=== PATIENT | male | born 1975 | race Caucasian/White ===

== ENCOUNTER 2021-06-08 09:34 | Emergency (ER) | payer BC, SELFPAY ==
--- NOTE | ~2021-06-08 | XR_ITS ---
EXAMINATION: XR knee RT min 4V EXAM DATE: 06/08/2021 10:18 INDICATION: right knee pain, felt a pop. TECHNIQUE: Right knee frontal, crosstable lateral, orthogonal oblique projections for interpretation . There is no prior study for comparison. FINDINGS: No evidence osteochondral defect or joint body in the right knee joint. No sizable joint effusion. There are no acute fractures or dislocations identified. There is no subcutaneous gas. T he soft tissue is unremarkable. There are no radiopaque foreign bodies. There is mild patellofemor al primary osteoarthritis. Mild patellar enthesopathy. IMPRESSION: 1. XR knee RT min 4V exam without acute osseous findings. 2. Mild degenerative changes. Reviewed, dictated and finalized at location A. [facility]
[2021-06-08 09:42] VITALS: BP 170/96; PULSE 88; RESP 21; TEMP 37.1; O2SAT 99
--- NOTE | 2021-06-08 10:21 | ED.LOWEXIN ---
HPI - Extremity Injury (Lower) General Chief Complaint: Extremity Injury, Lower Stated Complaint: pop in right knee Time Seen by Provider: 06/08/21 09:49 Source: patient Mode of arrival: wheelchair Limitations: no limitations History of Present Illness HPI Narrative: This is a 46 year old male that presents to the ER for right knee pain today. Reports he was stepping down off a curb this morning and felt a pop in the right knee. Reports since he has had pain in the knee especially with weightbearing. Denies decreased range of motion or numbness. Related Data Home Medications Medication Instructions Recorded Confirmed multivitamin 1 tablet PO DAILY 01/22/21 01/22/21 Allergies Allergy/AdvReac Type Severity Reaction Status Date / Time latex Allergy Unknown Rash Verified 06/08/21 09:54 Review of Systems Review of Systems: CONSTITUTIONAL: Denies fever SKIN: Denies rash MUSCULOSKELETAL: Reports joint pain, and myalgia. NEUROLOGIC: Denies numbness All systems reviewed & are unremarkable except as noted in HPI and below PMFSH Past Medical History Medical History (Updated 06/08/21 @ 10:49 by Ana Sandoval PA-C) BMI greater than 40 Essential (primary) hypertension History of kidney stones Umbilical hernia Surgical History Surgical History (Updated 01/22/21 @ 09:39 by Blanca Bourne) History of right inguinal hernia repair Performed by Dr. Pramod Cintron Family History Family History Mother Hypertension Sibling Hypertension Family history of attention deficit hyperactivity disorder (ADHD) Other Diabetes mellitus Family history of lung cancer Social History Social History Smoking status: Never smoker Alcohol intake: never Exam Narrative: GENERAL: Well-appearing, well-nourished, and in no acute distress. HEAD: Normocephalic, atraumatic. EYES: EOMI. EXTREMITIES: Normal range of motion. No edema or obvious deformity. Normal DP pulses. Normal sensation SKIN: Warm, dry, no rash. NEURO: No focal deficits. Alert and oriented x3. PSYCH: Normal mood and affect Course Vital Signs Vital signs: Vital Signs Temperature 98.7 F 06/08/21 09:42 Pulse Rate 88 06/08/21 09:42 Respiratory Rate 21 H 06/08/21 09:42 Blood Pressure 170/96 H 06/08/21 09:42 Pulse Oximetry 99 06/08/21 09:42 Temperature 98.7 F 06/08/21 09:42 Pulse Rate 76 06/08/21 10:44 Respiratory Rate 18 06/08/21 10:44 Blood Pressure 134/84 06/08/21 10:44 Pulse Oximetry 100 06/08/21 10:44 MDM - Extremity Injury (Lower) MDM Narrative Medical decision making narrative: Patient presents to the emergency department for right knee pain after an injury today. He is neurovascularly intact. Right knee x-rays without acute osseous abnormalities. Patient placed in a knee immobilizer and given crutches for knee sprain. He was instructed to follow-up with orthopedics. He was given warnings to return to the ER Patient's blood pressure also incidentally noted to be elevated upon arrival. He does have history of hypertension and had not taken his medication yet today. He was given this in the ED. Most recent blood pressure 134/84 Imaging Data Radiologist's impression: ITS Impressions Knee X-Ray 06/08/21 10:20 IMPRESSION: 1. XR knee RT min 4V exam without acute osseous findings. 2. Mild degenerative changes. Critical Care Time Critical Care Time Critical Care Time: No Discharge Plan Discharge Clinical Impression: Right knee sprain Qualifiers: Encounter type: initial encounter Involved ligament of knee: unspecified ligament Qualified Code(s): S83.91XA - Sprain of unspecified site of right knee, initial encounter Patient Disposition: Home, Self-Care Condition: Stable Instructions: Knee Sprain (ED) Additional Instructions: Return to the emergency department i
[2021-06-08 10:44] VITALS: BP 134/84; PULSE 76; RESP 18; O2SAT 100
[2021-06-08] MEDS: ACETAMINOPHEN 500 MG TABLET 1000 MG PO (10:45)
[2021-06-08] MEDS: KETOROLAC (*BKC) 60 MG/2 ML VIAL IM (10:46)
== END 2021-06-08 11:32 | disposition home or self-care (01) ==
PROVIDERS: Emergency Provider Emergency Medicine; PCP Family Medicine
DX: S83.91XA Sprain of unspecified site of right knee, initial encounter (principal); I10 Essential (primary) hypertension; Z87.442 Personal history of urinary calculi; X50.9XXA Other and unspecified overexertion or strenuous movements or postures, initial encounter
CPT/HCPCS: 73564; 96372; 99283; A9270; J1885

== ENCOUNTER 2021-08-22 07:37 | Outpatient (CLI) | payer BC, SELFPAY ==
--- NOTE | ~2021-08-22 | MR_ITS ---
EXAMINATION: MR knee RT wo con DATE: 08/22/2021 08:25 INDICATION: Right knee pain TECHNIQUE: Magnetic resonance imaging (MRI) of the right knee was performed without intravenous contr ast. Sequences included coronal PD-weighted FSE, coronal PD-weighted FS FSE, sagittal T2-weighted FS E, sagittal PD-weighted FS FSE and axial PD weighted fat saturated FSE. COMPARISON: None. FINDINGS: Medial compartment: Small radial tear near the posterior root of the medial meniscus. 10 x 7 mm deep chondral ulceration at the junction of the anterior and central weightbearing medial femoral condyle. More subtle deep ch ondral fissure with at the central weightbearing medial femoral condyle. Cartilage along the medial t ibial plateau appears normal however there is a small focus of subarticular edema-like signal change along the medial rim which may be reactive related to altered stress distribution resulting from the meniscal tear. Lateral compartment: Lateral meniscus is normal. Articular cartilage is normal. Patellofemoral compartment: Chondral ulceration and fissuring along the medial and lateral trochlea as well as the intervening tr ochlear groove with underlying cortical irregularity and a few small foci of edema-like marrow signal change. Apical ridge partial-thickness chondral fissuring involving less than 50% the cartilage thic kness at the medial lateral patellar facets and intervening apical ridge. Ligaments and tendons: Anterior and posterior cruciate ligaments are normal. Mild thickening of the proximal medial collater al without surrounding edema consistent with mild scarring related to chronic sprain. The fibular col lateral ligament complex is normal. Patellar insertions of the small proximal and distal patellar ent hesophytes with mild tendinopathy at the distal quadriceps tendon. The patellar tendon is normal. The visualized medial and lateral hamstring tendons as well as the iliotibial band are normal. Fluid: Small knee joint effusion with mild synovitis at the suprapatellar pouch. No loose osteochondral bodi es identified. Osseous/other: No fracture. A small sclerotic bone islands at the posterior aspect of the lateral femoral condyle. P eripherally based lesion at the posterior medial metaphysis of the distal femur with incomplete perip heral low signal intensity sclerotic rim with internal marrow fat signal likely representing residual scarring from a chronic fibrous cortical defect. IMPRESSION: 1. Radial tear near the posterior root of the medial meniscus. 2. Mild osteoarthritis in the patellofemoral compartment with extensive high-grade trochlear and mode rate grade patellar chondromalacia as well as in the medial compartment with small amount of moderate to high-grade chondral malacia along the weightbearing medial femoral condyle. 3. Small focus of marrow edema along the medial rim of the medial tibial plateau without appreciable overlying chondromalacia this may represent stress reaction related to altered stress distribution re sulting from the meniscal tear. 4. Small right knee joint effusion. Reviewed, dictated and finalized at location A. IMPRESSION: 1. Radial tear near the posterior root of the medial meniscus. 2. Mild osteoarthritis in the patellofemoral compartment with extensive high-gr isidro trochlear and moderate grade patellar chondromalacia as well as in the medi al compartment with small amount of moderate to high-grade chondral malacia perla ng the weightbearing medial femoral condyle. 3. Small focus of marrow edema along the medial rim of the medial tibial platea u without appreciable overlying chondromalacia this may represent stress reacti on related to altered stress distribution resulting from the meniscal tear. 4
== END 2021-08-22 07:38 | disposition home or self-care (01) ==
LOC: ANHIMG 07:39
PROVIDERS: PCP Family Medicine; Visit Provider Nurse Practitioner Adult Health
DX: S83.241A Other tear of medial meniscus, current injury, right knee, initial encounter (principal); M17.11 Unilateral primary osteoarthritis, right knee; M94.261 Chondromalacia, right knee; M25.461 Effusion, right knee
CPT/HCPCS: 73721

== ENCOUNTER 2021-12-09 14:54 | Emergency (ER) | payer BC, SELFPAY ==
--- NOTE | 2021-12-09 15:01 | ED.LOWEXIN ---
HPI - Extremity Injury (Lower) General Chief Complaint: Extremity Problem,Nontraumatic Stated Complaint: rt great toe pain and swelling Time Seen by Provider: 12/09/21 15:10 Source: patient and RN notes reviewed Mode of arrival: ambulatory Limitations: no limitations History of Present Illness HPI Narrative: 38-year-old male presents with concern for painful, red, swollen first digit of the right foot. 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 Reports his toe was healing well and looks good at his 2-week follow-up. Reports about a week and a half later he began having redness, pain, swelling. He reports 1 incident of clear drainage, denies other purulent drainage. Related Data Home Medications Medication Instructions Recorded Confirmed multivitamin 1 tablet PO DAILY 01/22/21 12/09/21 meloxicam 15 mg tablet 1 tablet PO DAILY 12/09/21 12/09/21 Allergies Allergy/AdvReac Type Severity Reaction Status Date / Time latex Allergy Unknown Rash Verified 12/09/21 14:58 Review of Systems Review of Systems: CONSTITUTIONAL: Denies malaise, chills, sweats, or fever. SKIN: Reports redness, swelling, tenderness at the base of the nail of the first digit of the right foot MUSCULOSKELETAL: Denies joint pain or myalgia. NEUROLOGIC: Denies headache. All systems reviewed & are unremarkable except as noted in HPI and below PMFSH Past Medical History Medical History BMI greater than 40 Essential (primary) hypertension History of kidney stones Umbilical hernia Surgical History Surgical History History of right inguinal hernia repair Performed by Dr. Pramod Cintron Family History Family History Mother Hypertension Sibling Hypertension Family history of attention deficit hyperactivity disorder (ADHD) Father No problems noted. 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 There is no relevant family history pertinent to the presenting complaint Exam Narrative: GENERAL: Well-appearing, well-nourished, and in no acute distress. HEAD: Normocephalic, atraumatic. EYES: PERRLA, conjunctivae clear ENT: Mucous membranes moist. NECK: Supple. No lymphadenopathy CHEST: Clear to auscultation. No respiratory distress. HEART: Regular rate and rhythm. SKIN: Warm, dry. Erythema, induration, tenderness noted to the base of the nailbed of the first digit of the right foot, no fluctuation noted, no drainage noted NEURO: Alert and oriented x3. PSYCH: Normal mood and affect Course Course Emergency Course: Patient is aware of diagnosis, understands and agrees to treatment plan. Anticipatory guidance given. Patient agrees to follow-up as directed and is aware of reasons to seek care at the emergency department. Portions of this record may have been created with voice recognition software Level of Care: Express Care Visit Vital Signs Vital signs: Reviewed. MDM - Extremity Injury (Lower) MDM Narrative Medical decision making narrative: Exam findings show no acute concerns or changes; patient is non-toxic appearing and is in no distress. Patient is appropriate for outpatient treatment and follow-up. Critical Care Time Critical Care Time Critical Care Time: No Discharge Plan Discharge Clinical Impression: Paronychia Patient Disposition: Home, Self-Care Condition:
[2021-12-09 15:10] VITALS: BP 150/96; PULSE 78; RESP 18; TEMP 36.5; O2SAT 98
== END 2021-12-09 15:22 | disposition home or self-care (01) ==
PROVIDERS: Emergency Provider Nurse Practitioner; PCP Family Medicine
DX: L03.031 Cellulitis of right toe (principal); I10 Essential (primary) hypertension
CPT/HCPCS: 99213; G0463

== ENCOUNTER 2022-11-08 00:29 | Emergency (ER) | payer BC, SELFPAY ==
--- NOTE | ~2022-11-08 | CT_ITS ---
EXAMINATION: CT abdomen pelvis w con INDICATION: Right-sided abdominal pain TECHNIQUE: Computed tomographic images of the abdomen and pelvis were obtained after the administrati on of 100 cc of Omnipaque 350 intravenous contrast. The dose-length product (DLP) was 1562.00 mGy-cm. Automated exposure control and iterative reconstruction technique were employed. COMPARISON: 10/19/2011 FINDINGS: Minimal dependent atelectasis is present in the lung bases. The heart size is normal. The l iver is diffusely low in attenuation when compared with the spleen, consistent with hepatic steatosis . There are areas of focal sparing at the gallbladder fossa. The spleen, pancreas, gallbladder, and a drenal glands are normal. There is circumferential wall thickening of the proximal duodenum with samantha cent fat stranding. There is a 7 mm cyst of the right kidney. Nonobstructing stones of the right kidn ey measure up to 3 mm. Nonobstructing stones of the left kidney measure up to 3 mm. No pathologically enlarged abdominal or pelvic lymph nodes are identified. The appendix is normal. No free intraperito thelma gas or evidence of bowel obstruction. There is a moderate-sized umbilical hernia containing fat. There is a small left inguinal hernia containing fat. IMPRESSION: 1. Wall thickening and surrounding inflammatory change of the proximal duodenum which may reflect duo denitis or possibly duodenal ulcer. Reviewed, dictated and finalized at location A. IMPRESSION: 1. Wall thickening and surrounding inflammatory change of the proximal duodenum which may reflect duodenitis or possibly duodenal ulcer.
[2022-11-08 00:32] VITALS: BP 170/101; PULSE 82; RESP 14; TEMP 36.8; O2SAT 97
[2022-11-08 00:54] LABS: Appearance Urine Clear (Clear); Bilirubin Urine Negative (Negative); Blood Urine Negative (Negative); Color Urine Yellow (Yellow); Glucose Urine UA Negative (Negative); Ketones Urine 1+ mg/dL (Negative); Leukocyte Esterase Ur Negative LEU/UL (Negative); Nitrate Urine Negative (Negative); Protein Urine Negative (Negative); Specific Grav Ur 1.021 (1.001-1.035); Urobilinogen Urine 0.2 mg/dL (<2.0); pH Urine 6.5 (5.0-9.0)
[2022-11-08 00:57] LABS: Basophils Percent Auto 0.2 % (0.2-1.2); Eosinophils Absolute Auto 0.3 K/mm3 (0-0.3); Eosinophils Percent Auto 2.5 % (0-4.4); Hemoglobin 15.4 g/dL (14.0-18.0); Immature Granulocyte Absolute 0.08 K/mm3 (0.00-0.031); Immature Granulocyte Percent A 0.6 % (0-0.5); Lymphocytes Absolute Auto 2.18 K/mm3 (0.9-3.2); Lymphocytes Percent Auto 16.9 % (18.3-44.2); Mean Corpuscular HGB Conc 32.8 g/dl (32-36); Mean Corpuscular Hemoglobin 29.8 pg (26-34); Mean Corpuscular Volume 91.1 fl (80-100); Mean Platelet Volume 11.5 fl (7.4-10.4); Monocytes Absolute Auto 1.1 K/mm3 (0.1-0.6); Monocytes Percent Auto 8.4 % (2.6-8.5); Neutrophils Absolute Auto 9.2 K/mm3 (1.3-6.7); Neutrophils Percent Auto 71.4 % (45.5-73.1); Platelet Count Result 244 k/mm3 (150-375); Red Blood Count 5.16 M/mm3 (4.6-6.20); Red Cell Distribution Width 13.7 % (11.5-14.5); White Blood Count 12.9 K/mm3 (4.5-10.0)
[2022-11-08 01:09] LABS: Alanine Aminotransferase 48 U/L (6-50); Albumin Level 4.5 g/dL (3.5-5.1); Alkaline Phosphatase 78 U/L (38-126); Anion Gap 7 mmol/L (8-16); Aspartate Amino Transferase 38 U/L (17-59); Bilirubin,Total 0.6 mg/dL (0.2-1.3); Blood Urea Nitrogen 16 mg/dL (9-20); Carbon Dioxide 28 mmol/L (22-30); Chloride 105 mmol/L (98-107); Estimated CRCL calculation 130 ml/min; Estimated Glomerular Filt Rate > 60; Glucose 120 mg/dL (65-110); Lipase 78 U/L (23-300); Potassium 4.2 mmol/L (3.4-5.0); Sodium 140 mmol/L (137-145)
[2022-11-08 01:27] LABS: Add Urine Microscopic? NO
--- NOTE | 2022-11-08 02:42 | ED.ABDPAIN ---
HPI - Abdominal Pain General Chief Complaint: Abdominal Pain <CHARLOTTE Hutton Last Filed: 11/08/22 03:27> Stated Complaint: abd pain <CHARLOTTE Hutton Last Filed: 11/08/22 03:27> Time Seen by Provider: 11/08/22 01:39 <CHARLOTTE Hutton Last Filed: 11/08/22 03:27> Source: patient <CHARLOTTE Hutton Last Filed: 11/08/22 03:27> Mode of arrival: ambulatory <CHARLOTTE Hutton Last Filed: 11/08/22 03:27> Limitations: no limitations <CHARLOTTE Hutton Last Filed: 11/08/22 03:27> History of Present Illness HPI narrative: Patient is a 47-year-old male who presents to the ED with report of diffuse abdominal pain. Patient reports having pain since . He states pain has been intermittent at first, but became worse tonight and more severe/constant. He states pain is diffuse throughout his periumbilical region and upper abdomen. Pain is worse with sitting and occasionally with movement. Tonight he developed loss of appetite and mild nausea. Denied any vomiting. Denies diarrhea or constipation. Denies rectal bleeding or melena. Denies fever. He has not tried anything for the pain. <CHARLOTTE Hutton Last Filed: 11/08/22 03:27> Related Data Home Medications: Home Medications Medication Instructions Recorded Confirmed multivitamin 1 tablet PO DAILY 01/22/21 10/21/22 <CHARLOTTE Hutton Last Filed: 11/08/22 03:27> Allergies/Adverse Reactions: Allergies Allergy/AdvReac Type Severity Reaction Status Date / Time latex Allergy Unknown Rash Verified 11/08/22 00:30 <CHARLOTTE Hutton Last Filed: 11/08/22 03:27> Review of Systems Review of Systems: CONSTITUTIONAL: Denies fever, chills, or sweats. CARDIOVASCULAR: Denies chest pain. RESPIRATORY: Denies dyspnea. GASTROINTESTINAL: See HPI. GENITOURINARY: Denies dysuria or hematuria. SKIN: Denies rash or itching. MUSCULOSKELETAL: Denies back pain, joint pain, or myalgia. <Alexus Stevenson PA-C - Last Filed: 11/08/22 03:27> All systems reviewed & are unremarkable except as noted in HPI and below <Alexus Stevenson PA-C - Last Filed: 11/08/22 03:27> [facility] Past Medical History Medical History: Medical History BMI greater than 40 Essential (primary) hypertension History of kidney stones History of torn meniscus of right knee Umbilical hernia <Alexus Stevenson PA-C - Last Filed: 11/08/22 03:27> Surgical History Surgical History: Surgical History History of right inguinal hernia repair Performed by Dr. Pramod Cintron <Alexus Stevenson PA-C - Last Filed: 11/08/22 03:27> Family History Family History: Family History Mother Hypertension Sibling Hypertension Family history of attention deficit hyperactivity disorder (ADHD) Father No problems noted. Other Diabetes mellitus Family history of lung cancer <Alexus Stevenson PA-C - Last Filed: 11/08/22 03:27> Social History Social History: Social History Smoking status: Never smoker Second hand tobacco smoke exposure: No Alcohol intake: never Substance use: never Substance use type: does not use Lack of Transportation: No Lack of Food: Never True Current Housing: I Have Housing Concerned About Future Housing: No Difficulty Paying Gas/Electric Bills: No Difficulty Paying for Meds: No Currently Unemployed: No Education: Associate Degree Difficulty w/ Childcare or Family Care: No Living arrangements: with family Occupation/Education: occupation 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
[2022-11-08] MEDS: SODIUM CHLORIDE 0.9% IV 1,000 ML 999 ML IV CONT (02:59)
[2022-11-08 05:35] VITALS: BP 143/84; PULSE 74; RESP 16; O2SAT 97
[2022-11-08 06:57] VITALS: BP 138/88; PULSE 99; RESP 17; O2SAT 74
== END 2022-11-08 07:39 | disposition home or self-care (01) ==
PROVIDERS: Emergency Provider Emergency Medicine; PCP Family Medicine
DX: K29.80 Duodenitis without bleeding (principal); R10.33 Periumbilical pain; R10.10 Upper abdominal pain, unspecified; I10 Essential (primary) hypertension; Z87.442 Personal history of urinary calculi
CPT/HCPCS: 36415; 74177; 80053; 81003; 83690; 85025; 96360; 96361; 99284; J7030; Q9967

== ENCOUNTER 2022-11-18 06:26 | Emergency (ER) | payer BC, SELFPAY ==
--- NOTE | ~2022-11-18 | CT_ITS ---
Non-contrast CT scan of the Abdomen and Pelvis Clinical indication: Right flank pain Technique: 2.5 mm axial scans were obtained through the abdomen and pelvis without intravenous or or al contrast. Dose reduction technique was used on this scan by utilizing automated exposure control a nd iterative reconstruction technique. The dose-length product (DLP) was 1376.50 mGy-cm. COMPARISON: 11/08/2022 Findings: Images through the lung bases reveal stable 3 mm right middle lobe pulmonary nodule. There is a 3 mm stone at the very distal right ureter, with minimal right hydronephrosis. Stable nono bstructing left renal stones are present. No left ureteral stone or left hydronephrosis. There is probable diffuse fatty infiltration of liver. There is a 1.7 cm relatively hyperechoic mass versus focal fatty sparing adjacent to the gallbladder fossa (axial image 53). The spleen, pancreas, gallbladder, and adrenals appear normal. There is no aortic aneurysm. There is no evidence of bowel obstruction. Large fat-containing umbilical hernia again present. Images through the pelvis were performed. There is no evidence of ascites or lymphadenopathy. Urinary bladder unremarkable. Prostate gland and seminal vesicles are unremarkable. Impression: 3 mm very distal right ureteral stone with minimal right hydronephrosis. Stable nonobstructing left renal stones. Large fat-containing umbilical hernia. Diffuse fatty infiltration of liver with 1.7 cm relatively hyperechoic mass versus focal fatty sparin g adjacent to the gallbladder fossa. This hyperechoic lesion is stable since 10/19/2011, therefore liu ign. Reviewed, dictated and finalized at [facility]. Impression: 3 mm very distal right ureteral stone with minimal right hydronephrosis. Stable nonobstructing left renal stones. Large fat-containing umbilical hernia. Diffuse fatty infiltration of liver with 1.7 cm relatively hyperechoic mass mahsa abe focal fatty sparing adjacent to the gallbladder fossa. This hyperechoic les ion is stable since 10/19/2011, therefore benign.
[2022-11-18 06:30] VITALS: BP 175/86; PULSE 76; RESP 20; TEMP 35.8; O2SAT 100
--- NOTE | 2022-11-18 07:49 | ED.ABDPAIN ---
HPI - Abdominal Pain General Chief Complaint: Abdominal Pain Stated Complaint: abdominal pain, possible kidney stone Time Seen by Provider: 11/18/22 07:01 History of Present Illness HPI narrative: Patient is a 47-year-old male who presents ER with abdominal pain and flank pain. Began earlier this morning. Sudden onset after urinating. Associated with some nausea. No alleviating factors. Has history of kidney stones and this feels similar. Pain is in the right abdomen moving to the right flank. No testicular pain. Patient reports he had some separate GI issues a week ago and had a CT scan but is unsure if there was a stone seen in his kidneys. Related Data Home Medications Medication Instructions Recorded Confirmed multivitamin 1 tablet PO DAILY 01/22/21 10/21/22 Allergies Allergy/AdvReac Type Severity Reaction Status Date / Time latex Allergy Unknown Rash Verified 11/08/22 00:30 Review of Systems Review of Systems: All systems reviewed & are unremarkable except as noted in HPI and below Constitutional: Constitutional: Denies chills, Denies fatigue and Denies fever(s) Cardiovascular: Cardiovascular: Denies chest pain and Denies rapid heart rate Gastrointestinal: Gastrointestinal: Reports abdominal pain, Denies diarrhea, Reports nausea and Denies vomiting Genitourinary: Genitourinary: Denies hematuria, Denies dysuria, Denies testicular pain and Reports urinary frequency [facility] Past Medical History Medical History BMI greater than 40 Essential (primary) hypertension History of kidney stones History of torn meniscus of right knee Umbilical hernia Surgical History Surgical History History of right inguinal hernia repair Performed by Dr. Pramod Cintron Family History Family History Mother Hypertension Sibling Hypertension Family history of attention deficit hyperactivity disorder (ADHD) Father No problems noted. 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 HEAD: Normocephalic, atraumatic. ENT: Mucous membranes moist. CHEST: Clear to auscultation. No respiratory distress. HEART: Regular rate and rhythm. Normal peripheral pulses. ABDOMEN: Soft, nontender, nondistended. EXTREMITIES: Normal range of motion. No edema. SKIN: Warm, dry, no rash. NEURO: Alert and oriented x3. PSYCH: Normal mood and affect. Course Vital Signs Vital signs: Vital Signs Temperature 96.5 F L 11/18/22 06:30 Pulse Rate 76 11/18/22 06:30 Respiratory Rate 20 11/18/22 06:30 Blood Pressure 175/86 H 11/18/22 06:30 Pulse Oximetry 100 11/18/22 06:30 Oxygen Delivery Room Air 11/18/22 06:30 Temperature 96.5 F L 11/18/22 06:30 Pulse Rate 67 11/18/22 08:30 Respiratory Rate 20 11/18/22 08:30 Blood Pressure 147/85 H 11/18/22 08:30 Pulse Oximetry 96 11/18/22 08:30 Oxygen Delivery Room Air 11/18/22 06:30 MDM - Abdominal Pain Lab Data 11/18/22 07:43 11/18/22 0
[2022-11-18 07:56] LABS: Basophils Percent Auto 0.2 % (0.2-1.2); Eosinophils Absolute Auto 0.2 K/mm3 (0-0.3); Eosinophils Percent Auto 2.2 % (0-4.4); Hematocrit 45.6 % (42.0-52.0); Hemoglobin 14.7 g/dL (14.0-18.0); Immature Granulocyte Absolute 0.03 K/mm3 (0.00-0.031); Immature Granulocyte Percent A 0.3 % (0-0.5); Lymphocytes Absolute Auto 1.42 K/mm3 (0.9-3.2); Lymphocytes Percent Auto 15.8 % (18.3-44.2); Mean Corpuscular HGB Conc 32.2 g/dl (32-36); Mean Corpuscular Hemoglobin 29.5 pg (26-34); Mean Corpuscular Volume 91.6 fl (80-100); Mean Platelet Volume 11.5 fl (7.4-10.4); Monocytes Absolute Auto 0.7 K/mm3 (0.1-0.6); Monocytes Percent Auto 8.3 % (2.6-8.5); Neutrophils Absolute Auto 6.6 K/mm3 (1.3-6.7); Neutrophils Percent Auto 73.2 % (45.5-73.1); Platelet Count Result 230 k/mm3 (150-375); Red Blood Count 4.98 M/mm3 (4.6-6.20); Red Cell Distribution Width 13.5 % (11.5-14.5)
[2022-11-18 08:08] LABS: Alanine Aminotransferase 48 U/L (6-50); Albumin Level 4.1 g/dL (3.5-5.1); Alkaline Phosphatase 80 U/L (38-126); Anion Gap 5 mmol/L (8-16); Aspartate Amino Transferase 33 U/L (17-59); Bilirubin,Total 0.4 mg/dL (0.2-1.3); Blood Urea Nitrogen 16 mg/dL (9-20); Calcium 8.6 mg/dL (8.4-10.2); Carbon Dioxide 29 mmol/L (22-30); Chloride 105 mmol/L (98-107); Estimated CRCL calculation 129 ml/min; Estimated Glomerular Filt Rate > 60; Glucose 150 mg/dL (65-110); Potassium 3.9 mmol/L (3.4-5.0); Sodium 139 mmol/L (137-145)
[2022-11-18] MEDS: SODIUM CHLORIDE 0.9% IV 1,000 ML 999 ML IV CONT (08:13)
[2022-11-18] MEDS: MORPHINE SULFATE (*CRX) 4 MG/ML INJ IV PUSH (08:16)
[2022-11-18] MEDS: ONDANSETRON INJ 4 MG/2 ML VIAL IV PUSH (08:17)
[2022-11-18 08:21] VITALS: BP 141/86; RESP 18; O2SAT 95
[2022-11-18 08:30] VITALS: BP 147/85; PULSE 67; RESP 20; O2SAT 96
[2022-11-18 08:36] LABS: Appearance Urine Clear (Clear); Bacteria Urine None Seen /hpf; Bilirubin Urine Negative (Negative); Blood Urine 3+ (Negative); Color Urine Yellow (Yellow); Glucose Urine UA Negative (Negative); Ketones Urine Negative (Negative); Leukocyte Esterase Ur Negative LEU/UL (Negative); Nitrate Urine Negative (Negative); Non Pathogenic Casts 0-2; Protein Urine Negative (Negative); Specific Grav Ur 1.013 (1.001-1.035); Squamous Epithelial Cell Urine None seen /hpf (Few); Urobilinogen Urine 0.2 mg/dL (<2.0); WBC Urine 0-5 /hpf; pH Urine 6.5 (5.0-9.0)
[2022-11-18 08:44] LABS: Add Urine Microscopic? YES
[2022-11-18 09:30] VITALS: BP 148/94; PULSE 82; RESP 16; O2SAT 100
== END 2022-11-18 09:40 | disposition home or self-care (01) ==
PROVIDERS: Emergency Medicine; Emergency Provider Emergency Medicine; PCP Family Medicine
DX: N13.2 Hydronephrosis with renal and ureteral calculous obstruction (principal); I10 Essential (primary) hypertension; Z87.442 Personal history of urinary calculi; K42.9 Umbilical hernia without obstruction or gangrene; K76.0 Fatty (change of) liver, not elsewhere classified
CPT/HCPCS: 36415; 74176; 80053; 81001; 85025; 96361; 96374; 96375; 99284; J2270; J2405; J7030

== ENCOUNTER 2023-02-25 01:20 | Day surgery (SDC) | payer BC, SELFPAY ==
[2023-02-16 13:36] VITALS: BMI 44.6
[2023-02-25 11:54] VITALS: BP 138/88; PULSE 77; RESP 18; TEMP 36.4; O2SAT 97
[2023-02-25] MEDS: LACTATED RINGERS 1,000 ML 150 ML IV CONT (11:56)
--- NOTE | 2023-02-25 12:11 | WPDANESEPPF ---
Anes - Initial Pre Proc Eval Procedure: Operation Date: 02/25/23 13:00 Proposed Procedures p Screening Colonoscopy - Mark Gr MD Date/Time: 02/25/23 12:11 Surgeon: Mark Gr MD Pre Op Diagnosis: neoplasm screening Patient Data Age: 48 Gender: M Height: 1.7 m Weight: 134.8 kg Last Vital Signs Temp 97.6 F 02/25/23 11:54 Pulse 77 02/25/23 11:54 Resp 18 02/25/23 11:54 BP 138/88 02/25/23 11:54 Pulse Ox 97 02/25/23 11:54 O2 Del Method Room Air 02/25/23 11:54 Allergies Allergy/AdvReac Type Severity Reaction Status Date / Time latex Allergy Unknown Rash Verified 02/25/23 11:53 Home Medications Medication Instructions Recorded Confirmed Type multivitamin 1 tablet PO DAILY 01/22/21 02/16/23 History metoprolol tartrate 25 mg tablet 25 mg PO DAILY #90 tabs 05/31/22 02/16/23 Rx Patient hx anesthesia problems: none Family hx anesthesia problems: none Results Review: All pre-operative results and documents have been reviewed as part of the pre-operative evaluation. [facility] Past Medical History Medical History (Updated 12/20/22 @ 14:56 by Teddy Head MD) BMI greater than 40 Diabetes type 2, controlled Essential (primary) hypertension History of kidney stones History of torn meniscus of right knee Umbilical hernia Surgical History Surgical History History of right inguinal hernia repair Performed by Dr. Pramod Cintron Family History Family History Mother Hypertension Sibling Hypertension Family history of attention deficit hyperactivity disorder (ADHD) Father No problems noted. 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 Informed Consent: The patient's anesthetic plan and its attendant risks and benefits were discussed with the patient/family/POA. Questions were solicited and answers provided to the satisfaction of the patient/family/POA.
--- NOTE | 2023-02-25 12:47 | PM.HPGS ---
History of Present Illness History of Present Illness Consent: Risks, benefits, and alternatives have been discussed and questions answered. Patient agrees to proceed with procedure. Chief complaint: neoplasm screening Narrative: Pramod Powell is a 48 year old male here for first screening colonoscopy Review of Systems Constitutional: Constitutional: Denies headache(s) and Denies weakness Eyes: Eyes: Denies blurry vision ENT: Reports Normal hearing present, Denies headache(s) and Denies neck pain Cardiovascular: Cardiovascular: Denies chest pain and Denies dyspnea Respiratory: Respiratory: Denies dyspnea Gastrointestinal: Gastrointestinal: Reports no additional gastrointestinal complaints Genitourinary: Genitourinary: Denies dysuria Musculoskeletal: Musculoskeletal: Denies neck pain Integumentary/Breasts: Skin/Breast: Denies dry skin Neurologic: Reports Normal hearing present, Denies headache(s) and Denies weakness Psychiatric: Psychiatric: Denies anxiety Endocrine: Endocrine: Denies change in body appearance Hematologic/Lymphatic: Hematologic/Lymphatic: Denies easy bleeding Allergic/Immunologic: Allergic/Immunologic: Denies urticaria PMF Past Medical History Medical History (Updated 02/25/23 @ 12:48 by Mark Gr MD) BMI greater than 40 Colon cancer screening Diabetes type 2, controlled Essential (primary) hypertension History of kidney stones History of torn meniscus of right knee Umbilical hernia Surgical History Surgical History History of right inguinal hernia repair Performed by Dr. rPamod Cintron Family History Family History Mother Hypertension Sibling Hypertension Family history of attention deficit hyperactivity disorder (ADHD) Father No problems noted. 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[employer] Gender identity (if verbalized by the patient): Male Spiritual care concerns: No Meds Home Medications and Allergies Home Medications Medication Instructions Recorded Confirmed Type multivitamin 1 tablet PO DAILY 01/22/21 02/16/23 History metoprolol tartrate 25 mg tablet 25 mg PO DAILY #90 tabs 05/31/22 02/16/23 Rx Allergies Allergy/AdvReac Type Severity Reaction Status Date / Time latex Allergy Unknown Rash Verified 02/25/23 11:53 Vital Signs Vital Signs - 24 hr 02/25/23 11:54 Temperature 97.6 F Pulse Rate 77 Respiratory Rate 18 Blood Pressure 138/88 Pulse Oximetry 97 Oxygen Delivery Room Air Exam Const: General: comfortable and no acute distress HENMT: Face/Nose/Sinus: Normal nares present Eyes: General: appearance normal, both eyes and all related structures Neck: Neck: no JVD Resp: Auscultation: clear to auscultation bilaterally Cardio: Rate: regular rate Rhythm: regular rhythm GI: Inspection: non-distended GI Palp: Yes Soft to palpation Skin: General skin exam: normal color Neuro: General: gait normal Speech: normal speech Extrem: General: normal to inspection Psych: Mental Status: mental status grossly normal Assessment and Plan Assessment and plan (1) Colon cancer screening:
[2023-02-25 13:30] VITALS: BP 104/62; PULSE 77; RESP 18; O2SAT 97
[2023-02-25 13:38] VITALS: BP 115/77; PULSE 70; RESP 18; O2SAT 98
[2023-02-25 13:44] VITALS: BP 120/74; PULSE 70; RESP 18; O2SAT 98
== END 2023-02-25 13:57 | disposition home or self-care (01) ==
PROVIDERS: PCP Family Medicine; Visit Provider Internal Medicine Gastroenterology
PROC: 0DJD8ZZ Inspection of Lower Intestinal Tract, Via Natural or Artificial Opening Endoscopic (ICD-10-PCS; CPT 45378; principal; 2023-02-25 13:00)
DX: Z12.11 Encounter for screening for malignant neoplasm of colon (principal); K64.8 Other hemorrhoids; E11.9 Type 2 diabetes mellitus without complications; I10 Essential (primary) hypertension; E66.01 Morbid (severe) obesity due to excess calories; Z68.42 Body mass index [BMI] 45.0-49.9, adult
CPT/HCPCS: 45378; J2704; J7120

== ENCOUNTER 2024-02-06 13:10 | Emergency (ER) | payer BC, SELFPAY ==
[2024-02-06 13:36] VITALS: BP 150/85; PULSE 67; RESP 16; TEMP 36.6; O2SAT 96
--- NOTE | 2024-02-06 13:57 | ED.GENADULT ---
HPI - General Adult General Chief complaint: Skin/Abscess/Foreign Body Stated complaint: LT Lower Leg bump Time Seen by Provider: 02/06/24 13:57 Source: patient, RN notes reviewed and old records reviewed Mode of arrival: ambulatory Limitations: no limitations History of Present Illness HPI narrative: 49-year-old male presents to the [facility] with a scabbed over area to the left lower anterior jordan. States that he does not remember injuring it however it was bleeding several days ago. States that the redness and some swelling started a day ago. Has been cleaning it and putting antibiotic ointment on Related Data Home Medications Medication Instructions Recorded Confirmed multivitamin 1 tablet PO DAILY 01/22/21 02/06/24 Allergies Allergy/AdvReac Type Severity Reaction Status Date / Time latex Allergy Unknown Rash Verified 02/06/24 13:45 Review of Systems Review of Systems: All systems reviewed & are unremarkable except as noted in HPI and below Constitutional: Constitutional: Reports no additional constitutional complaints Eyes: Eyes: Reports no additional eye complaints ENT: Reports system reviewed and no additional complaints, except as documented Cardiovascular: Cardiovascular: Reports no additional cardiovascular complaints, Denies chest pain and Denies dyspnea Respiratory: Respiratory: Reports no additional respiratory complaints, Denies chest congestion, Denies cough and Denies dyspnea Gastrointestinal: Gastrointestinal: Reports no additional gastrointestinal complaints, Denies abdominal pain, Denies nausea and Denies vomiting Musculoskeletal: Musculoskeletal: Reports no additional musculoskeletal complaints Integumentary/Breasts: Skin/Breast: Reports as per HPI Neurologic: Reports system reviewed and no additional complaints, except as documented Psychiatric: Psychiatric: Reports no additional psychiatric complaints Allergic/Immunologic: Allergic/Immunologic: Reports no additional allergic/immunologic complaints [facility] Past Medical History Medical History BMI greater than 40 Colon cancer screening Diabetes type 2, controlled Essential (primary) hypertension History of kidney stones History of torn meniscus of right knee Umbilical hernia Surgical History Surgical History History of right inguinal hernia repair Performed by Dr. Pramod Cintron Family History Family History Mother Hypertension Sibling Hypertension Family history of attention deficit hyperactivity disorder (ADHD) Father No problems noted. 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 There is no relevant family history pertinent to the patient complaint. Exam Const: General: cooperative, healthy appearing, comfortable, no acute distress, well developed, alert and well nourished Nutritional Appearance: well nourished Orientation/consciousness: patien
== END 2024-02-06 14:15 | disposition home or self-care (01) ==
PROVIDERS: Emergency Provider Nurse Practitioner; PCP Family Medicine
DX: S80.812A Abrasion, left lower leg, initial encounter (principal); X58.XXXA Exposure to other specified factors, initial encounter; E11.9 Type 2 diabetes mellitus without complications; I10 Essential (primary) hypertension
CPT/HCPCS: 99213; G0463